=== PATIENT | female | born 1985 | race African-American/Black ===

== ENCOUNTER 2016-07-08 12:02 | Emergency (ER) | payer MEDICAID ==
[~2016-07-08] VITALS: Ht 175.3 cm; Wt 110.0 kg
[~2016-07-08 12:02] MED LIST: PRAV80 PO; TOPI25 PO
[2016-07-08 12:04] VITALS: BP 143/90; PULSE 85; RESP 16; TEMP 98.1; O2SAT 98
[2016-07-08] MEDS ORDERED: ALBUAER3 INH (12:50)
[2016-07-08] MEDS ORDERED: HYDR12.57 PO (12:50)
--- NOTE | 2016-07-08 12:53 | PD ---
HPI Chief Complaint: Edema Time Seen by Provider: 12:49 Travel History International Travel<30 days: No Contact w/Intl Traveler<30days: No Traveled to known affect area: No History of Present Illness HPI Patient is a 30-year-old female who presents emergency department via EMS for evaluation of left foot pain. Patient states she is unable to bear weight since 5 AM this morning upon awakening. Patient denies any injury or trauma. She states pain is a 10 out of 10 when she is trying to walk on it. She denies any calf pain or tenderness. Patient denies any erythema or warmth. PFSH Past Medical History Asthma: Yes Blood Disorders: No Cancer: No Cardiovascular Problems: No Chemotherapy: No Diabetes: No Diminished Hearing: No Endocrine: No Genitourinary: No Neurologic: Yes (HYDROCEPHALUS) Psychiatric: No Reproductive: No Migraines: Yes Radiation Therapy: No Seizures: Yes Sleep Apnea: Yes ?: Not LMP: 2-3 WEEKS AGO Menopausal: No : 1 Para: 0 Miscarriage: 1 : 0 Past Surgical History Body Medical Devices: SHUNT Neurologic Surgery: Yes (OPTICAL EFFECTS [employer] SHUNT PLACED IN 1986) Tonsillectomy: Yes Other Surgery: Yes ( HEAD SHUNT) Social History Alcohol Use: Yes (SOCIAL) Tobacco Use: Yes (8 CIGARETTES/week) Substance Use: No Allergies-Medications (Allergen,Severity, Reaction): Coded Allergies: Percocet (Verified Adverse Reaction, Severe, Bleeding, 07/08/16) Tylenol (Verified Adverse Reaction, Severe, Nausea/Vomiting, 07/08/16) PER PATIENT, SHE IS ALLERGIC TO PERCOCET, NOT TYLENOL. SHE IS CURRENTLY ON LORTAB WITH NO ALLERGIC REACTION. Reported Meds & Prescriptions Reported Meds & Active Scripts Active Reported Proair Hfa 8.5 GM Inh (Albuterol Sulfate) 90 Mcg/Act Aer 2 Puff INH Q4-6H PRN 108 mcg/actuation Hydrochlorothiazide 12.5 Mg Cap 12.5 Mg PO DAILY Review of Systems Except as stated in HPI: all other systems reviewed are Neg Musculoskeletal: Positive: Myalgias, Edema, Pain Neurologic: No: Focal Abnormalities, Paresthesia, Sensory Disturbance Physical Exam Narrative GENERAL: Morbidly obese, well-developed patient. Resting comfortably in no acute distress. Friend at bedside. SKIN: Warm and dry. HEAD: Normocephalic. EYES: No scleral icterus. No injection or drainage. NECK: Supple, trachea midline. No JVD or lymphadenopathy. CARDIOVASCULAR: Regular rate and rhythm without murmurs, gallops, or rubs. RESPIRATORY: Breath sounds equal bilaterally. No accessory muscle use. GASTROINTESTINAL: Abdomen obese, soft, non-tender, nondistended. MUSCULOSKELETAL: No cyanosis, mild, nonpitting edema noted to the dorsal aspect of the left foot just distal to the ankle. No erythema. Moderately tender to palpation. Pedal pulses, brisk less than 3 second capillary refill. Negative Homans sign on the left. BACK: Nontender without obvious deformity. No CVA tenderness. Data Data Last Documented VS Vital Signs Date Time Temp Pulse Resp B/P Pulse Ox O2 Delivery O2 Flow Rate FiO2 07/08/16 12:04 98.1 85 16 143/90 98 Orders Foot, Complete ([id number]) (07/08/16 ) Ankle, Complete ([id number]) (07/08/16 ) [facility] Medical Decision Making Medical Screen Exam Complete: Yes Emergency Medical Condition: Yes Interpretation(s) Vital Signs Date Time Temp Pulse Resp B/P Pulse Ox O2 Delivery O2 Flow Rate FiO2 07/08/16 12:04 98.1 85 16 143/90 98 Differential Diagnosis Contusion versus arthritis versus dependent edema versus gout versus DVT Narrative Course Patient is a morbidly obese 30-year-old female presenting to emergency department via EMS for evaluation of left foot pain. She has no injury or trauma. She denies any new activities. Patient is neurovascularly intact. There is no calf pain or tenderness on exam, there is no erythema or warmth noted. There is mild edema noted to the dorsal aspect of the left foot just distal to the ankle. Imaging ordered and pending. Care patient will be transferred to provider when bed available. Nichole Mon Jul 08, 2016 12:53
--- NOTE | 2016-07-08 13:36 | RADRPT ---
EXAM DATE/TIME: 07/08/2016 13:10 [facility] COMPARISON: ANKLE LEFT COMPLETE ([id number]), November 06, 2007, 12:28. INDICATIONS : Awoke this morning with pain in left foot and ankle, denies trauma, unable to bear weight or ambulate , pain is on the lateral side of the left foot and ankle MEDICAL HISTORY : None. SURGICAL HISTORY : None. ENCOUNTER: Initial ACUITY: 1 day PAIN SCORE: 8/10 LOCATION: Left ankle FINDINGS: 3 views the left ankle demonstrate no fracture or dislocation. Ankle mortise is intact. Mineralizatio n is within normal limits and there are osteophytes at the talonavicular joint. No soft tissue abnorm ality or radiopaque foreign body is identified. There are enthesophytes at the posterior and plantar aspect of the calcaneus. CONCLUSION: No acute left ankle abnormality is identified. There is degenerative change at the talonavicular join tHerbie Doty MD on July 08, 2016 at 13:33 Board Certified Radiologist. This report was verified electronically.
--- NOTE | 2016-07-08 13:39 | RADRPT ---
EXAM DATE/TIME: 07/08/2016 13:12 [facility] COMPARISON: FOOT LEFT COMPLETE ([id number]), March 17, 2005, 17:29. INDICATIONS : Awoke this morning with pain in left foot and ankle, denies trauma, unable to bear weight or ambulate , pain is on the lateral side of the left foot and ankle MEDICAL HISTORY : None. SURGICAL HISTORY : None. ENCOUNTER: Initial ACUITY: 1 day PAIN SCORE: 8/10 LOCATION: Left foot FINDINGS: Three views of the left foot demonstrate no fracture or dislocation. The Lisfranc joint appears intac t. Mineralization is within normal limits and there osteophytes at the talonavicular joint. No soft t issue abnormality or radiopaque foreign body is identified. CONCLUSION: No acute left foot abnormality is identified. There are degenerative changes at the talonavicular negro ntHerbie Doty MD on July 08, 2016 at 13:35 Board Certified Radiologist. This report was verified electronically.
--- NOTE | 2016-07-08 14:01 | PD ---
Physical Exam Time Seen by Provider: 14:00 Narrative The patient was initially assessed in triage by DEEPAK Toro. See prior providers note for initial assessment and evaluation. I reassessed the patient and I agree with initial evaluation and history of present illness. Data Data Last Documented VS Vital Signs Date Time Temp Pulse Resp B/P Pulse Ox O2 Delivery O2 Flow Rate FiO2 07/08/16 12:04 98.1 85 16 143/90 98 Orders Foot, Complete ([id number]) (07/08/16 ) Ankle, Complete ([id number]) (07/08/16 ) Splint Or Brace Apply/Monitor (07/08/16 14:01) Ibuprofen (Motrin) (07/08/16 14:15) Crutches (07/08/16 14:01) MDM Supervised Visit with ROB: No Narrative Course The patient was initially assessed in triage by DEEPAK Toro. See prior providers note for initial assessment and evaluation. I reassessed the patient and I agree with initial evaluation and history of present illness. Left lower extreme is supple and non-tense with 2+ radial pulse and sensory intact. Tenderness on palpation on palpation to the ankle and midfoot zone. 1400: Left foot and ankle x-ray concludes: Last 24 hours Impressions Foot X-Ray 07/08/16 0000 Signed Impressions: Service Date/Time: Friday, July 08, 2016 13:12 - CONCLUSION: No acute left foot abnormality is identified. There are degenerative changes at the talonavicular joint. Orion Doty MD Ankle X-Ray 07/08/16 0000 Signed Impressions: Service Date/Time: Friday, July 08, 2016 13:10 - CONCLUSION: No acute left ankle abnormality is identified. There is degenerative change at the talonavicular joint. Orion Doty MD Ibuprofen ordered. Yinka bandage, ankle splint, crutches ordered for support. Instructed patient to follow-up with podiatry. Ibuprofen prescribed for home. Patient is medically cleared and stable for discharge. Discussed reasons to return to the emergency department. Instructed patient to follow up with primary care provider. Patient agrees with treatment plan. The patients vital signs are stable and the patient is stable for outpatient follow-up and treatment. Patient discharged home, stable and in no acute distress. Diagnosis Primary Impression: Left foot pain Additional Impression: Left ankle pain Qualified Code: M25.572 - Acute left ankle pain Referrals: [facility] Primary Care Physician Patient Instructions: Arthritis (ED), Crutch Instructions (ED), General Instructions Departure Forms: Tests/Procedures, Work Release Enter return to work date: Jul 10, 2016 Additional Instruction: Ibuprofen or Tylenol as directed and as needed for pain and inflammation Rest, ice, compress, and elevate extremity to decrease pain and inflammation Ankle Brace for support Yinka bandage for compression and support Crutches for support Avoid aggravating activity; increase activity as tolerated Follow-up with primary care provider Follow-up with podiatry Return to the emergency department immediately with worsening symptoms Med/Other Pt SpecificInfo: Prescription(s) given Scripts Ibuprofen 800 Mg Dil294 Mg PO Q6HR PRN (PAIN) #30 TAB Ref 0 Prov:Juli Silva 07/08/16 Disposition: 01 DISCHARGE HOME Condition: Stable Juli Silva Jul 08, 2016 14:01
[2016-07-08] MEDS ORDERED: IBUP800T23 PO (14:06)
[2016-07-08] MEDS ORDERED: IBUPROFEN 800 MG TAB PO ONE (14:15)
== END 2016-07-08 14:18 | disposition home or self-care (01) ==
LOC: NEPB 12:02
DX: M25.572 Pain in left ankle and joints of left foot (principal); M79.672 Pain in left foot
CPT/HCPCS: 73610; 73630; 99283; E0113; L1906